=== PATIENT | male | born 1980 ===

== ENCOUNTER 2018-05-01 16:17 | Emergency (ER) | payer OTHER ==
--- OUTSIDE RECORDS SUMMARY | 2018-05-01 16:26 | XMS REPORT ---
:1980 External Reference #:[id number] Author Organization [facility] Address [address] [place] [address] Phone [phone] Care Team Providers Name Role Phone Jermaine Stanton MD Care Team Information Credit Card Control Clerk Unavailable Jermaine Stanton MD Primary Care Physician Unavailable Payers Type Date Identification Payment Subscriber Numbers Provider Health Maintenance Effective: Policy Number: Gideon Castrejon Organization ([place]) 07/08/2010 [id number] [employer] Number: [id number] [address] PayID: [id number] [place] [address] Problems Description No Information Family History Date Family Member(s) Problem(s) Comments Father Sleep Apnea Father Asthma Mother Depression First Brother Liver Disease First Sister Epilepsy Paternal Grandmother Diabetes Mellitus, II Social History Type Date Description Comments Occupation works [employer] Cigarette Use Never Smoked Cigarettes ETOH Use Occasional Allergies, Adverse Reactions, Alerts Date Description Reaction Status Severity Comments 10/05/2017 NKDA active 01/01/2010 Hay Fever active Medications Medication Date Status Form Strength Qnty SIG Indications Ordering Provider Multivitamin / Active Tablets 1 by mouth Unknown Adult 0000 every day Vivotif 06/14/ Hx Capsules 4caps 1 by mouth Jermaine Fink [address] every other Maximino 06/22/ day for 4 M.D. 2017 doses No Active 01/10/ Hx Unknown Medications 2010 - 2016 Note ok for work Marifer 2009 - return [facility], 01/31/ /09/16 Afnp-C 2009 Note 01/15/ Hx pt was seen 309.29 Marifer 2009 - in this [facility], 01/29/ office Afnp-C 2009 today. advised off through 01/25/10 Note 01/01/ Hx pt was seen Marifer 2009 - in this [facility], 01/04/ office Afnp-C 2009 today,medic ally excused from work through 01/04/10, will return 01/07/10 Lamisil 04/12/ Hx Solution 1% 30ml apply bid x 782.1 Maia 2007 - 7 days Gold, 01/01/ Afnp-C 2009 Lotrisone 01/10/ Hx Cream 30gm use bid 782.1 Maia 2007 - prn Gold, 01/01/ Afnp-C 2009 Benzamycin 09/02/ Hx 50Gram apply to Jermaine F. Topical Gel 2005 - s area qd-bid Maximino, 04/12/ Gabrielle 2008 Physical 09/02/ Hx treatment Jermaine F. Therapy 2004 - and Maximino, 04/12/ evaluation M.Shalom 2008 back pain Cortisporin / Hx Cream 0.5-0.5-10 prn To Unknown 0000 - 000 Fingers 2010 Medications Administered in Office Medication Date Status Form Strength Qnty SIG Indications Ordering Provider TB Intradermal Administered Injection Jermaine F. Test 017 Gabrielle Stanton TB Intradermal Administered Injection Jermaine F. Test 004 Gabrielle Stanton TB Intradermal Administered Injection Nurse, Test 004 Nurse TB Intradermal Administered Injection Nurse, Test 002 Nurse Immunizations CPT Code Status Date Vaccine Lot # [id number] Given 12/31/2017 Hepatitis B Immunization, adult dosage, for 4795H intramuscular use 13470 Given 12/31/2017 Hep A Adlt Immunization [id number] 08965 Given 11/30/2017 Hepatitis B Immunization, adult dosage, for 4795H intramuscular use [id number] Given 06/18/2017 Hep A Adlt Immunization [id number] Given 02/26/2016 Tdap Tetanus, W Pertussis [id number] Given 03/22/2002 Inactive Polio Immunization [id number] Given 03/22/2002 (IPV) Inactive Poliovirus Vaccine Vital Signs Date Vital Result Comment 04/29/2018 BP Systolic 102 mmHg BP Diastolic 68 mmHg Heart Rate 60 /min Body Temperature 97.8 F Respiratory Rate 16 /min Height 67 inches 5'7" Weight 161.00 lb BMI (Body Mass Index) 25.2 kg/m2 10/05/2017 BP Systolic 120 mmHg BP Diastolic 78 mmHg Heart Rate 72 /min Body Temperature 97.5 F Height 67 inches 5'7" Weight 164.00 lb BMI (Body Mass Index) 25.7 kg/m2 02/26/2016 BP Systolic 120 mmHg BP Diastolic 70 mmHg Heart Rate 64 /min Body Temperature 97.6 F Respiratory Rate 16 /min Height 67 inches 5'7" Weight 163.00 lb BMI (Body Mass Index) 25.5 kg/m2 09/16/2013 BP Systolic 126 mmHg BP Diastolic 90 mmHg Heart Rate 60 /min Body Temperature 97.4 F Respiratory Rate 16 /min Height 68 inches 5'8" Weight 162.00 lb BMI (Body Mass Index) 24.6 kg/m2 Right Visual Acuity Distance 20/20 Left Visual Acuity Distance 20/20 05/26/2013 BP Systolic 108 mmHg BP Diastolic 64 mmHg Heart Rate 60 /min Body Temperature 97.7 F Respiratory Rate 18 /min Height 68 inches 5'8" Weight 160.00 lb BMI (Body Mass Index) 24.3 kg/m2 01/10/2011 BP Systolic 100 mmHg BP Diastolic 60 mmHg Heart Rate 56 /min Body Temperature 97.6 F Respiratory Rate 20 /min Height 68 inches 5'8" Weight 145.00 lb BMI (Body Mass Index) 22.0 kg/m2 01/15/2010 BP Systolic 110 mmHg BP Diastolic 80 mmHg Heart Rate 64 /min Body Temperature 98.0 F Respiratory Rate 20 /min Weight 145.00 lb 01/01/2010 BP Systolic 134 mmHg BP Diastolic 84 mmHg Heart Rate 76 /min Body Temperature 98.1 F Respiratory Rate 16 /min Weight 146.00 lb 04/12/2008 BP Systolic 100 mmHg BP Diastolic 56 mmHg Heart Rate 76 /min Body Temperature 97.2 F Height 67.75 inches 5'7.75" Weight 130.00 lb BMI (Body Mass Index) 19.9 kg/m2 01/11/2008 BP Systolic 102 mmHg BP Diastolic 60 mmHg Body Temperature 97.8 F Height 67.75 inches 5'7.75" Weight 134.00 lb BMI (Body Mass Index) 20.5 kg/m2 09/02/2005 BP Systolic 120 mmHg BP Diastolic 80 mmHg Heart Rate 60 /min Body Temperature 98.1 F Respiratory Rate 12 /min Height 67.75 inches 5'7.75" Weight 134.00 lb BMI (Body Mass Index) 20.5 kg/m2 03/22/2002 BP Systolic 116 mmHg BP Diastolic 78 mmHg Heart Rate 72 /min Body Temperature 96.7 F Height 67.75 inches 5'7.75" Weight 126.00 lb BMI (Body Mass Index) 19.7 kg/m2 10/01/2000 BP Systolic 100 mmHg BP Diastolic 60 mmHg Heart Rate 68 /min O2 % BldC Oximetry 2020 % With Glasses Height 67.75 inches 5'7.75" Weight 128.00 lb BMI (Body Mass Index) 20.0 kg/m2 Height Percentile 91 % Right Visual Acuity Distance 20/20 Results Test Date Test Result H/L Range Note Ict Hemoccult (Fma) 11/02/2017 Ict Hemoccult (1) 10/10/17 neg Ict Hemoccult-(2) 10/11/17 neg Ict-Hemoccult (3) 10/12/17 neg Laboratory test finding 10/05/2017 TSH 2.37 mIU/L 0.50-6.00 Free T4 0.85 ng/dL 0.75-1.54 Complete Blood Count 09/25/2017 WBC 4.1 x10^3/UL 3.6-9.6 RBC 5.15 x10^6/UL 3.90-5.70 HGB 15.0 g/dL 12.1-17.2 HCT 44 % 36-50 MCV 86.0 fL 82.2-97.4 MCH 29.1 pg 27.6-33.3 MCHC 33.9 g/dL 33.0-35.5 RDW 14.0 % High 11.6-13.7 PLT 223 x10^3/UL 150-400 MPV 8.7 fL 7.4-10.4 Gran # 2.1 x10^3/UL 1.5-7.2 Lymph# 1.9 x10^3/UL 0.7-4.9 Porter# 0.1 x10^3/UL 0.1-0.9 Gran % 47.8 % 42.2-75.2 Lymph % 47.9 % 20.5-51.1 Porter% 4.3 % 1.7-9.3 Comprehensive Metabolic Prof 09/25/2017 Sodium 140 mEq/L 134-149 Potassium 4.2 mEq/L 3.6-5.5 Chloride 101 mEq/L 94-112 Carbon Dioxide 27 mEq/L 21-32 Glucose 106 mg/dL High 70-105 1 BUN 7 mg/dL 6-26 Creatinine 0.9 mg/dL 0.6-1.4 BUN/Creat Ratio 7.8 CALC Low 8.0-36.0 Calcium 9.4 mg/dL 8.6-10.2 Total Protein 7.2 g/dL 6.4-8.3 Albumin 4.5 g/dL 3.8-5.5 Globulin 2.7 g/dL 2.0-4.8 A/G Ratio 1.7 CALC 0.6-2.3 Alk. Phosphatase 86 U/L 22-95 Alt (SGPT) 18 U/L 7-35 Ast (Sgot) 21 U/L 5-34 Total Bilirubin 0.4 mg/dL 0.2-1.3 GFR Non- >60 ml/min/1.73m^ >=60 GFR >60 ml/min/1.73m^ >=60 Lipid Profile 09/25/2017 Cholesterol 196 mg/dL 120-200 Triglycerides 110 mg/dL 30-200 HDL Cholesterol 41 mg/dL 30-70 LDL (Calculated) 133 CALC High 0-129 VLDL Cholesterol 22 mg/dL 0-50 HDL Risk Factor 4.8 CALC High 0.0-4.4 Ict Hemoccult (Fma) 03/17/2016 Ict Hemoccult (1) 03/09/16 neg Ict Hemoccult-(2) 03/10/16 neg Ict-Hemoccult (3) 03/11/16 neg Ua - Non Micro (Fma) 02/26/2016 Appearance clear Color yellow Glucose, Urine (Fma/CMC/CTX) neg Bilirubin neg Ketones neg SP Grav 1.015 Blood neg PH 7.5 Protein neg Urobil 0.2 Nitrite neg Leukocytes (Fma/CMC/Centrex) neg Complete Blood Count 02/19/2016 WBC 4.9 x10^3/UL 3.6-9.6 RBC 4.99 x10^6/UL 3.90-5.70 HGB 14.7 g/dL 12.1-17.2 HCT 43 % 36-50 MCV 87.0 fL 82.2-97.4 MCH 29.5 pg 27.6-33.3 MCHC 34.1 g/dL 33.0-35.5 RDW 13.7 % 11.6-13.7 PLT 243 x10^3/UL 150-400 MPV 8.4 fL 7.4-10.4 Gran # 2.6 x10^3/UL 1.5-7.2 Lymph# 2.0 x10^3/UL 0.7-4.9 Porter# 0.3 x10^3/UL 0.1-0.9 Gran % 51.4 % 42.2-75.2 Lymph % 42.0 % 20.5-51.1 Porter% 6.6 % 1.7-9.3 Lipid Profile 02/19/2016 Cholesterol 226 mg/dL High 120-200 Triglycerides 52 mg/dL 30-200 HDL Cholesterol 54 mg/dL 30-70 LDL (Calculated) 162 CALC High 0-129 VLDL Cholesterol 10 mg/dL 0-50 HDL Risk Factor 4.2 CALC 0.0-4.4 Comprehensive Metabolic Prof 02/19/2016 Sodium 136 mEq/L 134-149 Potassium 4.3 mEq/L 3.6-5.5 Chloride 98 mEq/L 94-112 Carbon Dioxide 26 mEq/L 21-32 Glucose 101 mg/dL 70-105 BUN 13 mg/dL 6-26 Creatinine 0.9 mg/dL 0.6-1.4 BUN/Creat Ratio 14.4 CALC 8.0-36.0 Calcium 9.7 mg/dL 8.6-10.2 Total Protein 7.2 g/dL 6.4-8.3 Albumin 4.7 g/dL 3.8-5.5 Globulin 2.5 g/dL 2.0-4.8 A/G Ratio 1.9 CALC 0.6-2.3 Alk. Phosphatase 78 U/L 22-95 Alt (SGPT) 34 U/L 7-35 Ast (Sgot) 33 U/L 5-34 Total Bilirubin 0.8 mg/dL 0.2-1.3 GFR Non- >60 ml/min/1.73m^ >=60 GFR >60 ml/min/1.73m^ >=60 Ua - Non Micro ([facility]) 09/16/2013 Appearance CLEAR Color YELLOW Glucose NEG Bilirubin NEG Ketones NEG SP Grav <=1.005 Blood NEG PH 5.5 Protein NEG Urobil 0.2 Nitrite NEG Leukocytes ([facility]ma/[facility]/Centrex) NEG Comprehensive Metabolic Prof 09/08/2013 Albumin 4.9 g/dL 3.8-5.5 Alk. Phos. 83 U/L 22-95 Alt (SGPT) 23 U/L 10-40 Ast (Sgot) 26 U/L 5-34 BUN 15 mg/dL 6-26 Calcium 9.4 mg/dL 8.6-10.2 Chloride 100 mEq/L 94-112 Creatinine 1.0 mg/dL 0.6-1.4 Carbon Dioxide 25 mEq/L 21-32 Glucose 109 mg/dL High 70-105 2 Sodium 136 mEq/L 134-149 Total Bilirubin 0.6 mg/dL 0.2-1.3 Total Protein 7.3 g/dL 6.3-8.1 Potassium 3.7 mEq/L 3.6-5.5 Globulin 2.4 g/dL 2.0-4.8 A/G Ratio 2.0 Calc 0.6-2.3 BUN/Creat Ratio 16.1 Calc 8.0-36.0 Lipid Profile 09/08/2013 Cholesterol 255 mg/dL High 120-200 HDL 47 mg/dL 30-70 Triglycerides 87 mg/dL 30-200 HDL Risk Factor 5.4 CALC High 0.0-4.4 LDL (Calculated) 191 CALC High 0-129 VLDL (Calculated) 17 mg/dL 0-50 CBC Electronic (a) 09/08/2013 WBC 4.9 3.6-9.6 RBC 5.27 3.90-5.70 Hemoglobin (Fma/CMC/CTX) 14.9 g/dL 12.1 - 17.2 Hematocrit (Fma/CMC/CTX) 45.2 % 36.1 - 50.3 Platelets 236 10^3/ul 150-400 Lymph% 53.6 High 20.5-51.1 Mixed% 7.3 Neutrophils % 39.1 Mean Corpuscular Vol 86 82.2-97.4 Mean Corpuscular Hemoglobin 28.3 27.6-33.3 Mean Corpuscular Hemo Concen 33.0 32.0-36.0 RDW 11.5 Low 11.6-13.7 Mean Platelet Volume 7.8 6.5-11.0 Ua - Non Micro ([facility]) 01/10/2011 Appearance CLEAR Color YELLOW Glucose NEG Bilirubin NEG Ketones NEG SP Grav 1.020 Blood NEG PH 7.0 Protein NEG Urobil 0.2 Nitrite NEG Leukocytes (a/[facility]/Centrex) NEG Comprehensive Metabolic Prof 12/31/2010 Albumin 4.8 g/dL 3.8-5.5 Alk. Phos. 69 U/L 22-95 Alt (SGPT) 26 U/L 10-40 Ast (Sgot) 28 U/L 5-34 BUN 16 mg/dL 6-26 Calcium 9.8 mg/dL 8.6-10.2 Chloride 94 mEq/L 94-112 Creatinine 0.8 mg/dL 0.6-1.4 Carbon Dioxide 24 mEq/L 21-32 Glucose 105 mg/dL 70-105 Sodium 144 mEq/L 134-149 Total Bilirubin 0.5 mg/dL 0.2-1.3 Total Protein 7.4 g/dL 6.3-8.1 Potassium 4.6 mEq/L 3.6-5.5 Globulin 2.6 g/dL 2.0-4.8 A/G Ratio 1.9 Calc 0.6-2.2 BUN/Creat Ratio 20.3 Calc 8.0-36.0 Lipid Profile 12/31/2010 Cholesterol 196 mg/dL 120-200 HDL 44 mg/dL 30-70 Triglycerides 73 mg/dL 30-200 HDL Risk Factor 4.4 CALC High 0.0-4.0 LDL (Calculated) 137 CALC High 0-129 VLDL (Calculated) 15 mg/dL 0-50 CBC Electronic ([facility]) 12/31/2010 WBC 4.2 3.6-9.6 RBC 5.02 3.90-5.70 Hemoglobin (a/CMC/CTX) 14.3 g/dL 12.1 - 17.2 Hematocrit (a/CMC/CTX) 43.7 % 36.1 - 50.3 Platelets 236 10^3/ul 150-400 Lymph% 44.5 20.5-51.1 Mixed% 8.6 Neutrophils % 46.9 Mean Corpuscular Vol 87 82.2-97.4 Mean Corpuscular Hemoglobin 28.5 27.6-33.3 Mean Corpuscular Hemo Concen 32.7 32.0-36.0 RDW 11.8 11.6-13.7 Mean Platelet Volume 8.6 6.5-11.0 Comp Metabolic ([facility]) Male 09/04/2005 Glucose, Serum (a/CMC/CTX) 100 mg/dL 70-105 BUN (a/[facility]/Centrex) 15 mg/dL 6-26 Creatinine (a/CMC/CTX) 0.9 mg/dL 0.6-1.4 BUN/Creatinin Ratio 17.5 8.0-36 Sodium 137 134-149 Potassium 3.6 3.6-5.5 Chloride 103 mEq/L 94-112 Co2 28 21-32 Calcium (a/CMC/Centrex) 10.0 mg/dL 8.6-10.2 Total Protein 7.6 g/dL 6.3-8.1 Albumin ([facility]) 4.6 3.8-5.5 Globulin 3.0 2.0-4.8 A/G Ratio (a/[facility]rex) 1.5 0.6-2.2 Alk Phos ([facility]) Male 68 U/L 22-95 Alt-M SGPT Male ([facility]) 23 10-40 Ast Sgot 28 U/L 5-34 Bilirubin, Total 0.8 mg/dL 0.2-1.3 Lipid Profile([facility]) Male 09/04/2005 Cholesterol 169 mg/dL 120-200 Triglyceride 52 mg/dL 30-200 HDL Cholesterol ([facility]) Male 43 mg/dL 30-70 LDL, Calculated ([facility]) 115 CALC 0-129 LDL Direct (/[facility]rex) - mg/dL 0-130 VLDL 10 0-50 HDL Risk Factor ([facility]) 3.9 CALC Low 4.2-7.0 Ua - Non Micro ([facility]) 09/04/2005 Appearance CLEAR Color LT YELLOW Glucose NEG Bilirubin NEG Ketones NEG SP Grav 1.010 Blood NEG PH 5.5 Protein NEG g/dL Low 6.4-8.3 Urobil 0.2 Nitrite NEG Leukocytes NEG CBC Electronic ([facility]) 09/04/2005 WBC 5.6 3.6-9.6 Lymphocytes 48.4 % 20.5 - 51.1 Monocytes 7.5 % 1.7-9.3 Granulocytes 44.1 % 42.2 - 75.2 Lymphocytes 2.7 10^3/uL 0.7 - 4.9 Monocytes 0.4 10^3/uL 0.1 - 0.9 Granulocytes 2.5 10^3/uL 1.5 - 7.2 RBC 4.85 3.90-5.70 Hemoglobin (Fma/CMC/CTX) 13.8 g/dL 12.1 - 17.2 Hematocrit (Fma/CMC/CTX) 41.0 % 36.1 - 50.3 Mean Corpuscular Vol 84.6 82.2-97.4 Mean Corpuscular Hemaglobin 28.5 27.6-33.3 Mean Corpuscular Hemo Concen 33.7 33.0-36.0 RDW 13.3 11.6-13.7 Platelets 224. 10^3/ul 150-400 Mean Platelet Volume 9.2 7.4-10.4 Ua - Non Micro ([facility]) 03/22/2002 Appearance CLEAR YELLOW Glucose NEGATIVE Bilirubin NEGATIVE Ketones NEGATIVE SP Grav 1.015 Blood NEGATIVE PH 6.0 Protein NEGATIVE Urobil 0.2 Nitrite NEGATIVE Leukocytes NEGATIVE 1 RESULTS VERIFIED BY REPEAT ANALYSIS 2 result madina'd Procedures Date CPT Code Description Status 10/05/2017 98974 [facility] Completed 02/26/2016 42942 [facility] Completed 02/26/2016 02667 Electrocardiogram Complete Completed 09/16/2013 08521 [facility] Completed 09/16/2013 27116 Vision Test- screening test of visual acuity, Completed quantitative, bila 01/10/2011 52984 [facility] Completed 09/02/2005 22515 Pure Tone Audiometry Completed Encounters Type Date Location Provider CPT E/M Dx Office Visit 03/02/2017 10:00a [facility] Jermaine Stanton M.D. 21243 Z11.1 Office Visit 05/26/2013 8:30a [facility] [place] [address] 726.71 Office Visit 01/15/2010 10:30a [facility] Marifer Valencia 89950 309.29 Afnp-C Office Visit 01/01/2010 9:30a [facility] Marifer Valencia 17260 309.29 [facility] 780.52 Office Visit 04/12/2008 9:15a [facility] Maia Malcolm eli-C 45330 782.1 Office Visit 01/11/2008 9:00a [facility] Maia Malcolm eli-C 62865 782.1 Office Visit 09/02/2005 5:15p [facility] Jermaine Stanton M.D. 17961 V70.0 724.5 706.1 Office Visit 03/22/2002 9:20a [facility] Office Kike Westbrook M.D. 26635 Office Visit 10/01/2000 2:20p Main Office Guy Encarnacion M.D. 65250 Plan of Care 04/29/2018 - Tiff Grace, NPZ20.2 Contact w and exposure to infect w a sexl mode of transmissNew Labs:HIV 1&2 Antibody Screen ([facility])RPR ([facility] /[facility])Chlamydia/GC Amplified ProbeHIV 1&2 Antibody Screen ([facility])RPR ([facility]/ [facility])Comments:Until we recheck your blood labs in 6 weeks, continue to use condoms.Z11.4 Encounter for screening for human immunodeficiency virus
[2018-05-01 16:27] VITALS: BP 139/86
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
== END 2018-05-01 17:24 | disposition home or self-care (01) ==
LOC: UCEAST 16:17
DX: S16.1XXA Strain of muscle, fascia and tendon at neck level, initial encounter (principal); S06.0X9A Concussion with loss of consciousness of unspecified duration, initial encounter; V49.59XA Passenger injured in collision with other motor vehicles in traffic accident, initial encounter; Y92.9 Unspecified place or not applicable
CPT/HCPCS: 99201; G0463